=== PATIENT | female | born 1995 ===

== ENCOUNTER 2018-02-11 20:28 | Emergency (ER) | payer OTHER ==
[2018-02-11 20:39] VITALS: BP 120/73
--- NOTE | 2018-02-11 21:02 | UC ---
Ear Complaint HPI - HPI Summary HPI Summary: 22 y/o female presents to the urgent care c/o pain, redness and swelling of her upper RT ear lobe she noticed yesterday. Pt reports she has a piercing that is now infected after she pulled it while doing rock climbing. Piecing was placed a year ago and has never been infected before. She noticed this morning some yellowish drainage in the posterior side of the piercing. Pain is 2 /10, Pt denies fever, DENSON, dizziness, numbness or the ear or inner ear pain or URI, SOB, chest pain, abdominal pain, N/V/D - History of Current Complaint Chief Complaint: UCEar Stated Complaint: EAR PAIN Time Seen by Provider: 02/11/18 21:00 Hx Obtained From: Patient Hx Last Menstrual Period: 07/22/17 Onset/Duration: Gradual Onset, Lasting Days - 1 day, Still Present, Worse Since - this morning Severity Initially: Mild Pain Intensity: 2 Pain Scale Used: 0-10 Numeric Aggravating Factors: Other - touch Alleviating Factors: Nothing Associated Signs/Symptoms: Positive: Swelling @ - around piercing w/ redness and yellowish discharge - Allergies/Home Medications Allergies/Adverse Reactions: Allergies Allergy/AdvReac Type Severity Reaction Status Date / Time No Known Allergies Allergy Verified 08/07/17 16:14 Home Medications: Home Medications Ethinyl Estradiol/Drospirenone [Gianvi 3 mg-0.02 mg Tablet] 1 tab PO 02/11/18 [ History] PMH/Surg Hx/FS Hx/Imm Hx Previously Healthy: Yes - Pt denies pMHX - Surgical History Surgical History: Yes Surgery Procedure, Year, and Place: bilat hips - Family History Known Family History: Positive: Hypertension, Diabetes Family History: Hyperthyroidism - Social History Occupation: Student Lives: With Family Alcohol Use: Occasionally Substance Use Type: None Smoking Status (MU): Never Smoked Tobacco - Immunization History Hx Tetanus, Diphtheria Vaccination: Yes Review of Systems Constitutional: Negative Skin: Other - redness, swelling and yellowish drainage around piercing in the RT upper ear lobe Eyes: Negative ENT: Ear Ache - RT ear lobe pain Respiratory: Negative Cardiovascular: Negative Gastrointestinal: Negative Genitourinary: Negative Motor: Negative Neurovascular: Negative Musculoskeletal: Negative Neurological: Negative Psychological: Negative Is Patient Immunocompromised?: No All Other Systems Reviewed And Are Negative: Yes Physical Exam - Summary Physical Exam Summary: Vital signs: reviewed General: well developed, well nourished female adolescent sitting in the examining table w/o any apparent distress Skin: [place], warm and dry, no evidence of atopic dermatitis, psoriasis, seborrhea. HEENT: -Head: atraumatic, non tender; no scalp dermatitis. -Eyes: sclera and conjunctiva clear, PERRLA, EOMI -Ears: no pre- or postauricular lymphadenopathy or erythema; RT external ear canal clear, RT TM WNL, pinna tenderness on palpation, erythema surrounding a piercing located in the RT upper ear lobe and moderate swelling spreading to the Mathews and antihelix of the ear lobe. Positive yellowish drainages in the posterior part of the ear piercing, LF external ear canal clear and LF TM WNL. No fluid level, vesicles, or bullae. No perforation. -Nose/Face: erythematous and edematous nasal mucosa with clear rhinorrhea, no frontal or maxillary sinus tender to palpation. -Mouth/Throat: Mucous membrane moist, posterior pharynx clear, no erythema or exudates. Neck: supple, FROM, nontender, no lymphadenopathy, no meningismus. Chest: Clear to auscultation, normal breath sounds Abd: soft, Bowel sounds active, Nontender. Back: no spinal or CVAT Neuro: A&O x4, GCS 15, no focal neuro deficits, normal behavior for age. Triage Information Reviewed: Yes Vital Signs: Initial Vital Signs Temp 98.1 F 02/11/18 20:33 Pulse 80 02/11/18 20:33 Resp 18 02/11/18 20:33 BP 120/73 02/11/18 20:33 Pulse Ox 100 02/11/18 20:33 Ear Complaint Course/Dx - Course Course Of Treatment: 22 y/o female presents to the urgent care c/o pain, redness and swelling of her upper RT ear lobe she noticed yesterday. Pt reports she has a piercing that is now infected after she pulled it while doing rock climbing. Piecing was placed a year ago and has never been infected before. She noticed this morning some yellowish drainage in the posterior side of the piercing. Pain is 2/10, Pt denies fever, DENSON, dizziness, numbness or the ear or inner ear pain or URI, SOB, chest pain, abdominal pain, N/V/D, Hx obtained. Pt w/ cellulitis sorrounding piercing on the upper RT ear lobe on examination. Swab sample taken form laura and sent for wound culture to the lab. area cleaned w/ iodine swabs and piercing removed w/ hemostasts. Pt tolerated well procedure. Pt given Rocefin IM inj. Inj given by nurse. Pt tolerated well inj. Pt Rx Keflex PO, Bacitracin oint, and Ibuprofen PO to alleviate symptoms and strongly recommended to f/u w/ her PCP or ENT Dr Valencia in 2 days for a check up to see if symptoms are improving. I spoke to mother over the phone and explained D/C instructions. Mother and PT understood and agreed w/ plan of care. Pt left the clinic hemodynamically stable A&OX3 - Differential Dx/Diagnosis Differential Diagnosis/HQI/PQRI: Cellulitis, Cerumen Impaction, Otitis Externa, Otitis Media, Perforated TM, URI Provider Diagnoses: 1- Cellulitis sorroundiing piercing on the RT ear lobe. 2- Otalgia Discharge - Sign-Out/Discharge Documenting (check all that apply): Discharge/Admit/Transfer - D/C home - Discharge Plan Condition: Stable Disposition: HOME Prescriptions: Bacitracin OINTMENT* 1 applic TOPICAL BID #1 tube Cephalexin CAP* [Keflex CAP*] 500 mg PO QID #28 cap Ibuprofen TAB* [Motrin TAB* 600 MG] 600 mg PO Q6H PRN #20 tab PRN Reason: Pain Patient Education Materials: Cellulitis (ED) Referrals: Rodney Valencia MD [Medical Doctor] - 2 Days Bhanu Mg MD [Primary Care Provider] - 2 Days Additional Instructions: 1-Please take full course of Antibiotic. 2- If redness and swelling doubles in size after 48 hrs of taking antibiotic and fever develops please go to the ER immediately. 3-Apply Bacitracin oint on affected area as directed 4-Please F/u with your PCP in [address] Valencia to see if symptoms are improving for further management. - Billing Disposition and Condition Condition: STABLE Disposition: HOME
[2018-02-11] MEDS ORDERED: cefTRIAXone VIAL(*) 1,000 MG VIAL IM ONE (22:09)
[2018-02-11] MEDS ORDERED: Lidocaine 1% MPF* 2 ML VIAL INJ ONE (22:09)
--- NOTE | 2018-02-14 10:34 | UC ---
- Progress Note Progress Note: wound culture prelim + staph neg MRSA Pt on keflex await sensitivity Discharge - Sign-Out/Discharge Documenting (check all that apply): Post-Discharge Follow Up - Discharge Plan Condition: Stable Disposition: HOME Prescriptions: Bacitracin OINTMENT* 1 applic TOPICAL BID #1 tube Cephalexin CAP* [Keflex CAP*] 500 mg PO QID #28 cap Ibuprofen TAB* [Motrin TAB* 600 MG] 600 mg PO Q6H PRN #20 tab PRN Reason: Pain Patient Education Materials: Cellulitis (ED) Referrals: Rodney Valencia MD [Medical Doctor] - 2 Days Bhanu Mg MD [Primary Care Provider] - 2 Days Additional Instructions: 1-Please take full course of Antibiotic. 2- If redness and swelling doubles in size after 48 hrs of taking antibiotic and fever develops please go to the ER immediately. 3-Apply Bacitracin oint on affected area as directed 4-Please F/u with your PCP in [address] Valencia to see if symptoms are improving for further management. - Billing Disposition and Condition Condition: STABLE Disposition: HOME
== END 2018-02-11 22:25 | disposition home or self-care (01) ==
LOC: UCEAST 20:28
DX: H60.11 Cellulitis of right external ear (principal); B95.61 Methicillin susceptible Staphylococcus aureus infection as the cause of diseases classified elsewhere; H92.01 Otalgia, right ear
CPT/HCPCS: 87070; 87077; 87186; 87205; 87640; 87641; 96372; 99212; G0463; J0696

== ENCOUNTER 2018-05-06 10:40 | Emergency (ER) | payer OTHER ==
--- NOTE | 2018-05-06 11:58 | UC ---
Back Pain HPI - HPI Summary HPI Summary: 22 yo female presents with mid/low back pain for the past 2 weeks. She tells me that 2 weeks ago she was waterskiing for the first time and fell a lot. She did not have a specific injury or have much pain at that time, but the next day she woke with back pain and stiffness. Since that time her pain is worst first thing in the morning and before bedtime. She is ambulating without assistance or a limp. Has taken ibuprofen for the pain with minimal relief. Denies numbness , tingling, radiation of pain, dysuria, saddle anesthesia, or loss of bowel/ bladder function. - History of Current Complaint Chief Complaint: UCBackPain Stated Complaint: BACK PAIN Time Seen by Provider: 05/06/18 11:57 Hx Obtained From: Patient Hx Last Menstrual Period: 04/28/18 Onset/Duration: Sudden Onset Timing: Intermittent Severity Initially: Moderate Severity Currently: Moderate Pain Intensity: 5 Pain Scale Used: 0-10 Numeric - Allergies/Home Medications Allergies/Adverse Reactions: Allergies Allergy/AdvReac Type Severity Reaction Status Date / Time No Known Allergies Allergy Verified 05/06/18 10:56 Home Medications: Home Medications Ibuprofen TAB* [Motrin TAB* 600 MG] 200 mg PO Q6H PRN 05/06/18 [History Confirmed 05/06/18] PMH/Surg Hx/FS Hx/Imm Hx - Additional Past Medical History Additional PMH: None Previously Healthy: Yes - Surgical History Surgical History: Yes Surgery Procedure, Year, and Place: bilat hips - Family History Known Family History: Positive: Hypertension, Diabetes, Other - Hyperthyroidism Family History: Hyperthyroidism - Social History Occupation: Student Lives: With Family Alcohol Use: Occasionally Substance Use Type: None Smoking Status (MU): Never Smoked Tobacco - Immunization History Hx Tetanus, Diphtheria Vaccination: Yes Review of Systems Constitutional: Negative Skin: Negative Respiratory: Negative Cardiovascular: Negative Gastrointestinal: Negative Genitourinary: Negative Neurovascular: Negative Musculoskeletal: Other: - LBP Neurological: Negative Psychological: Negative All Other Systems Reviewed And Are Negative: Yes Physical Exam - Summary Physical Exam Summary: GENERAL: NAD. WDWN. No pain distress. SKIN: No rashes, sores, lesions, or open wounds. NECK: Supple. FROM. Nontender. No lymphadenopathy. CHEST: CTAB. No r/r/w. No accessory muscle use. Breathing comfortably and in no distress. CV: RRR. Without m/r/g. Pulses intact. Brisk cap refill. MSK: TTP over right lumbar paraspinal muscles. Pain with flexion and extension of spine. Positive SLR on right. Strength 5/5 B/L LEs including dorsiflexion and plantar flexion. FROM B/L LEs. No edema. NEURO: Alert. CN II-XII grossly intact. Sensations intact B/L LEs L3-S1. PSYCH: Age appropriate behavior. Triage Information Reviewed: Yes Vital Signs: Initial Vital Signs Temp 98.7 F 05/06/18 10:47 Pulse 82 05/06/18 10:47 Resp 14 05/06/18 10:47 BP 114/79 05/06/18 10:47 Pulse Ox 100 05/06/18 10:47 Vital Signs Reviewed: Yes Back Pain Course/Dx - Course Course Of Treatment: XR t spine: IMPRESSION: NORMAL STUDY. XR lumbar sping: IMPRESSION: LUMBAR SPINE STRAIGHTENING, OTHERWISE NEGATIVE. Suspect muscle strain/spasm of back. Pt refused physical therapy at this time. Rx for meloxicam and flexeril prn. Advised to keep active and practice exercises as in printed material. - Differential Dx/Diagnosis Provider Diagnoses: Low back pain Discharge - Sign-Out/Discharge Documenting (check all that apply): Patient Departure - Discharge Plan Condition: Stable Disposition: HOME Prescriptions: Cyclobenzaprine TAB* [Flexeril 10 MG TAB*] 10 mg PO BID PRN #10 tab PRN Reason: Pain Meloxicam 7.5 mg PO BID PRN #20 tablet PRN Reason: Pain Patient Education Materials: Low Back Strain (ED), Lower Back Exercises (ED) Referrals: Bhanu Mg MD [Primary Care Provider] - Additional Instructions: If you develop a fever, shortness of breath, chest pain, new or worsening symptoms - please call your PCP or go to the ED. 1) Do not take ibuprofen/aleve/motrin or any other NSAIDs or anti-inflammatory medications in addition to the Meloxicam as these could interact. - Billing Disposition and Condition Condition: STABLE Disposition: Home
--- NOTE | 2018-05-06 12:53 | RAD ---
INDICATION: Back pain COMPARISON: None TECHNIQUE: Routine PA, lateral, and oblique imaging was performed . FINDINGS: Bones: There are no acute bony findings. There are no significant osteoarthritic findings. Alignment: There is loss of normal lumbar lordosis Disc spaces: The disc spaces are well-maintained Soft tissues: There are no soft tissue abnormalities. IMPRESSION: LUMBAR SPINE STRAIGHTENING, OTHERWISE NEGATIVE.
--- NOTE | 2018-05-06 12:53 | RAD ---
INDICATION: Back pain COMPARISON: None TECHNIQUE: Routine 2 view imaging was performed FINDINGS: Bones: There are no acute bony findings. There are no significant osteoarthritic findings. Alignment: Normal Disc spaces: The disc spaces are well-maintained Soft tissues: There are no soft tissue abnormalities. IMPRESSION: NORMAL STUDY.
[2018-05-06 13:17] VITALS: BP 124/77
== END 2018-05-06 13:17 | disposition home or self-care (01) ==
LOC: UCEAST 10:40
DX: M54.5 Low back pain (principal); W19.XXXA Unspecified fall, initial encounter; Y93.17 Activity, water skiing and wake boarding
CPT/HCPCS: 72070; 72110; 81003; 84702; 87086; 99212; G0463